=== PATIENT | female | born 1975 | race African-American/Black ===

== ENCOUNTER 2017-03-29 03:49 | Observation (INO) | payer BC, OTHER ==
--- NOTE | ~2017-03-29 | HP ---
History And Physical [place] [id number] [facility] [place]. [address] NAME: BAKARI BHATT : 79 STATUS : ADM Apollo PAT#: [id number] AGE: 41 ADM/REG DATE : 03/29/17 MR#: [id number] REPORT SERV DATE: 03/29/17 DICTATED BY: MARCIN VILLEDA DATE: 03/29/17 REPORT STATUS : Draft TRANSCRIBED BY: MODL DATE: 03/29/17 DATE OF ADMISSION: 03/29/2017 CHIEF COMPLAINT: Abdominal pain. HISTORY OF PRESENT ILLNESS: A 41-year-old female with a history of a periumbilical pain for greater than a month, was treated by GI doctor recently for H. pylori and pain resolve for a short time. Now has returned over the last two weeks. There was an exacerbation in acute onset of periumbilical pain that woke the patient from sleep last night. This pain is different than previously, that is now being a cramp and dull pain, there is now a sharp stabbing cramp and colicky in nature with radiation to her back. She also has new symptoms of nausea and dry heaves. She reports no dysuria or hematuria, or worsening of the pain with voiding. Her bowel movements have been normal for her. No bright red blood per rectum. No melena. She denies any fever or chills. Positive for anorexia. REVIEW OF SYSTEMS: A 12-system review was negative except for those as mentioned in HPI. ALLERGIES: MORPHINE AND FLAGYL, BOTH WHICH CAUSE HIVES AND ITCHING. PAST MEDICAL HISTORY: 1. Fibromyalgia. 2. IBS. 3. Nephrolithiasis. 4. Rheumatoid arthritis. 5. Chronic anemia. PAST SURGICAL HISTORY: 1. Tubal ligation. 2. Partial hysterectomy. 3. Multiple colonoscopies and EGDs by Dr. Hoyos. 4. Bilateral foot surgery, not otherwise specified. SOCIAL HISTORY: No tobacco, alcohol, or drugs. She is unemployed and is considered to be disabled per the patient. FAMILY HISTORY: No ulcerative colitis or Crohn disease or any cancers as mentioned. MEDICATIONS: See list. Significant for chronic use of laxatives and negative for any blood thinners. PHYSICAL EXAMINATION: VITAL SIGNS: Blood pressure 134/94, pulse of 85, respiratory rate 18, O2 saturation 99% on room air, and temperature 97 0. GENERAL: This is a well developed, well nourished, morbidly obese, black female, who appears to be anxious and emotional. History And Physical [address] [place]. [address] NAME: BAKARI BHATT : 79 STATUS : ADM Apollo PAT#: [id number] AGE: 41 ADM/REG DATE : 03/29/17 MR#: [id number] REPORT SERV DATE: 03/29/17 DICTATED BY: MARCIN VILLEDA DATE: 03/29/17 REPORT STATUS : Draft TRANSCRIBED BY: ROCÍO DATE: 03/29/17 HEENT: Normocephalic and atraumatic. PERRLA. EOMI. Mucous membranes are moist. NECK: No lymphadenopathy. Trachea midline. CARDIOVASCULAR: Regular rate and rhythm. LUNGS: Clear to auscultation bilaterally. ABDOMEN: Soft and nondistended. Tender to palpation in the right lower quadrant at McBurney's point. Negative for rebound, guarding, or peritonitis. EXTREMITIES: No clubbing, cyanosis, or edema. 2+ pulses. MUSCULOSKELETAL: Moves all extremities well. NEUROLOGIC: Cranial nerves 2 through 12 are intact. Alert and oriented x3. LABORATORY DATA: White blood cell count 12.0, hematocrit 39.8, and platelets 222. Sodium 140, potassium 3.7, chloride 100, bicarb 27, BUN 10, creatinine 0.72, and glucose 101. Urinalysis: Negative for UTI. A CT scan shows two different fecaliths in the appendix as well as a dilated and elongated appendix with some thickening consistent with appendicitis. ASSESSMENT AND PLAN: This is a 41-year-old female with chronic appendicitis. The patient was taken to the operating room for a laparoscopic appendectomy possible open. The above procedure was described in detail with risks, benefits, and alternatives also described. The risks to include, but not limited to, pain, bleeding, infection, injury to surrounding structures, need for future operations, failure of the procedure, specifically abscess formation and failure to resolve all abdominal pain complaints. The risks of anesthesia as well with being heart attack, stroke, failure to wean from the ventilator, and . The patient expressed clear verbal understanding. All questions were answered, and the patient wished to proceed forward with the procedure. DICTATED BY: MD SEVERIANO Chaves/ROCÍO Marcin Villeda M.D. / [id number] CC: Yessi Pepe NP
--- NOTE | ~2017-03-29 | OP ---
Record Of [facility] [address] [place]. [address] NAME: BAKARI BHATT : 79 STATUS : DIS Apollo PAT#: [id number] AGE: 41 ADM/REG DATE : 03/29/17 MR#: [id number] REPORT SERV DATE: 04/03/17 DICTATED BY: MARCIN VILLEDA DATE: 04/02/17 REPORT STATUS : Draft TRANSCRIBED BY: MODL DATE: 04/02/17 DATE OF PROCEDURE: 03/29/2017 PREOPERATIVE DIAGNOSIS: Pucrx-so-brlbmex appendicitis. POSTOPERATIVE DIAGNOSIS: Eiskr-qs-fkzlwxe appendicitis. PROCEDURE: Laparoscopic appendectomy. SURGEON: Marcin Villeda M.D. RESIDENT: Jeovanny Fry MD ANESTHESIA: General. ESTIMATED BLOOD LOSS: Less than 10 mL. IV FLUIDS: Approximately 1000 mL crystalloid. SPECIMENS: Appendix. DRAINS: None. COMPLICATIONS: None. FINDINGS: The patient had an elongated appendix with the distal tips inflamed consistent with acute appendicitis. INDICATIONS FOR PROCEDURE: A 41-year-old female who presented with an acute onset of periumbilical abdominal pain with associated symptoms of nausea and vomiting. Workup was performed. The patient was found to have acute appendicitis. The patient also had a history of chronic abdominal pain. Those were similar symptoms, but have been treated previously with antibiotics with resolution for short time, possibly consistent with chronic appendicitis. Therefore, the above procedure was offered to the patient. Risks, benefits, and alternatives were explained. The patient expressed clear verbal understanding and wished to proceed for this procedure. DESCRIPTION OF PROCEDURE: After informed consent was obtained, the patient was taken back to the operative theater. The patient was laid on the operating room table in supine position. The patient was given adequate analgesia and anesthesia and then successfully endotracheally intubated. The surgery site was then prepped and draped in a standard fashion. A formal time-out was performed. Appropriate preoperative antibiotics had been administered. All present in the operating room were in agreement and elected to proceed forward with this procedure. We began by injecting local anesthetic periumbilically making a curvilinear infraumbilical incision and then entered into the abdominal cavity with Optiview trocar. Once we gained access to abdominal cavity, it was connected to insufflation. Record Of [facility] [address] [facility] [place]. [address] NAME: BAKARI BHATT : 79 STATUS : DIS Apollo PAT#: [id number] AGE: 41 ADM/REG DATE : 03/29/17 MR#: [id number] REPORT SERV DATE: 04/03/17 DICTATED BY: MARCIN VILLEDA DATE: 04/02/17 REPORT STATUS : Draft TRANSCRIBED BY: ROCÍO DATE: 04/02/17 Pneumoperitoneum was achieved with 10 mmHg and the patient tolerated this well. The laparoscope was introduced into the abdominal cavity and quick surveillance revealed no blood, no bile or injuries to the small bowel or mesentery to gain access to the abdominal cavity. We then placed a 5-mm trocar in the right upper quadrant and then one in the midline infraumbilically. The appendix was then visualized. It was dissected free from the lateral sidewall with electrocautery and blunt dissection. We then were able to free up the mesoappendix from surrounding structures as well. The appendiceal tip was noted to be inflamed, acute appendicitis. We were then able to use Endo-AUSTIN 45-mm stapler white load. In this, we were able to come across the base of the appendix as well as the mesoappendix with just one load. We then stapled and transected the appendix and mesoappendix with one white tissue load. The appendix was grasped. The stapled appendix were removed from the abdominal cavity, passed off the surgical field. Staple line was reviewed. Hemostasis was noted to be achieved and we had a good secure staple line, irrigated with some saline solution in the right lower quadrant. We then used a Tigre-Gauri suture passer and under direct laparoscopic vision, reapproximated the tissue at the infraumbilical trocar site with a 0 Vicryl. Fascia was reapproximated well and hemostasis was noted to be achieved. We then removed our remaining trocars under direct laparoscopic vision. Hemostasis was noted to be achieved. Desufflated the patient's abdomen adequately and then reapproximated our skin incision sites with 4-0 Monocryl in a simple running subcuticular stitch fashion. The skin was reapproximated very well. Hemostasis was noted to be achieved. Sterile dressings had been applied. Sterile drapes were broken down. The patient was reversed from anesthesia. The patient was awake and alert. Vital signs were stable. The patient was transferred to the recovery room in stable condition. DICTATED BY: MD SEVERIANO Chaves/ROCÍO Marcin Villeda M.D. / [id number] CC: Yessi Pepe NP
[~2017-03-29 03:49] MED LIST: ADVIL PO; BIST PO; FLEX PO; HARD NAILS PO; HYDROCHLOROT25 MG PO; LIDOCAINE 2% GEL TOP; LINZESS 290 M290 MCG PO; NORCO1 TAB PO; RELPAX20 MG PO; SEROQUEL1C PO; TOPAMAX50 MG PO; X5 PO
[2017-03-29 05:22] LABS: BASOPHILS 0.1 %; BASOPHILS ABSOLUTE 0.01 10/3/uL (0.0-0.16); EOSINOPHILS 0.3 %; EOSINOPHILS ABSOLUTE 0.03 10/3/uL (0.0-0.53); HEMOGLOBIN 13.4 g/dL (12.0-16.0); IMMATURE GRANULOCYTES 0.2 %; IMMATURE GRANULOCYTES ABSOLUTE 0.02 10/3/uL (0.0-0.11); LYMPHOCYTES 11.2 %; LYMPHOCYTES ABSOLUTE 1.34 10/3/uL (0.67-4.30); MEAN CORPUS HGB CONC 33.7 g/dL (32.0-36.0); MEAN CORPUSCULAR HEMOGLOB 26.3 pg (26.0-34.0); MEAN PLATELET VOLUME 9.6 fL (9.2-13.0); MONOCYTES 3.4 %; MONOCYTES ABSOLUTE 0.41 10/3/uL (0.21-1.20); NEUTROPHILS 84.8 %; NEUTROPHILS ABSOLUTE 10.16 10/3/uL (2.02-8.40); PLATELET COUNT 222 10/3/uL (150-400); RBC DISTRIBUTION WIDTH 14.3 % (12.0-16.0)
[2017-03-29 05:23] LABS: ER CBC TAT 0 Hrs 05 Mins; HEMATOCRIT 39.8 % (36.0-48.0); MANUAL DIFF NO %
[2017-03-29 05:39] LABS: BUN (BLOOD UREA NITROGEN) 10 MG/DL (6-23); CALCIUM, SERUM 8.7 MG/DL (8.5-10.4); CHLORIDE, SERUM 109 MMOL/L (96-112); CO2 (CARBON DIOXIDE) 27 MMOL/L (24-34); CREATININE 0.72 MG/DL (0.55-1.02); GFR AFRICAN AMERICAN 122 ML/MIN (>=60); GFR NON AFRICAN AMERICAN 105 ML/MIN (>=60); POTASSIUM, SERUM 3.7 MMOL/L (3.5-5.3); SGOT(AST) 14 U/L (5-40); SGPT(ALT) 23 U/L (5-65); SODIUM, SERUM 140 MMOL/L (135-148); TOTAL BILIRUBIN 0.2 MG/DL (0-1.2); TOTAL PROTEIN 8.2 G/DL (6.0-8.5)
[2017-03-29 05:43] LABS: A/G RATIO 0.7 (0.7-1.9); ALBUMIN 3.5 G/DL (3.5-5.0); ALKALINE PHOSPHATASE 81 U/L (45-117); GLOBULIN 4.7 G/DL (2.5-4.1); GLUCOSE, SERUM 101 MG/DL (60-99)
[2017-03-29 06:03] LABS: ASCORBIC ACID (UR NOT ORDER) NEG (NEG); BILIRUBIN, URINE NEGATIVE (NEG); ER URINALYSIS TAT 0 Hrs 07 Mins; KETONE, URINE NEGATIVE (NEG); LEUKOCYTE ESTERASE(NOT OR NEG (NEG); NITRITE (URINE) NEG (NEG); WBC (NOT ORDERED) (RFLEX) 1 (0-5)
[2017-03-29] MEDS ORDERED: LINZESS 290 M290 MCG PO (08:51)
[2017-03-29] MEDS ORDERED: PRILOSEC40 MG PO (08:52)
[2017-03-29] MEDS ORDERED: NORCO1 TAB PO (08:52)
[2017-03-29] MEDS ORDERED: FLEX PO (08:54)
[2017-03-29] MEDS ORDERED: RELPAX20 MG PO (08:55)
[2017-03-29] MEDS ORDERED: VITD PO (08:55)
[2017-03-29] MEDS ORDERED: TOPAMAX50 MG PO (08:57)
[2017-03-29] MEDS ORDERED: XANAX1 MG PO (08:58)
[2017-03-29] MEDS ORDERED: KLONO1 PO (08:59)
[2017-03-29] MEDS ORDERED: SEROQUEL300 MG PO (09:01)
[2017-03-29] MEDS ORDERED: BIST PO (09:01)
[2017-03-29] MEDS ORDERED: DSS PO (09:03)
[2017-03-29] MEDS ORDERED: HARD NAILS PO (09:03)
[2017-03-29] MEDS ORDERED: FOLINIC PLUS PO (09:04)
[2017-03-29] MEDS ORDERED: NASACORTAQ NAS (09:05)
[2017-03-29] MEDS ORDERED: LIDOCAINE 2% JELLY T (09:06)
== END 2017-03-29 16:11 | disposition home or self-care (01) ==
LOC: ER 03:49 → CDU1 07:25 → SDC/OF 10:23
PROVIDERS: Emergency Medicine; Specialist
PROC: 0DTJ4ZZ Resection of Appendix, Percutaneous Endoscopic Approach (ICD-10-PCS; principal; 2017-03-29 10:15)
DX: K35.80 Unspecified acute appendicitis (principal); M79.7 Fibromyalgia; K58.9 Irritable bowel syndrome, unspecified; Z87.442 Personal history of urinary calculi; M06.9 Rheumatoid arthritis, unspecified; D64.9 Anemia, unspecified; Z98.51 Tubal ligation status; Z88.5 Allergy status to narcotic agent; Z88.8 Allergy status to other drugs, medicaments and biological substances; Z90.711 Acquired absence of uterus with remaining cervical stump; Z98.890 Other specified postprocedural states
CPT/HCPCS: 74176; 80053; 81001; 83690; 84703; 85025; 88304; 96374; 99285; A9270-GY; G0378; J0295; J1170; J2250; J2405; J2710; J3010